=== PATIENT | male | born 1985 | race Two or more races ===

== ENCOUNTER 2017-05-13 16:14 | Emergency (ER) | payer SELFPAY ==
[~2017-05-13] VITALS: Ht 180.3 cm; Wt 81.6 kg
--- NOTE | 2017-05-13 16:43 | NUR ---
PT IS IN ROOM #2A. DR PEREZ EVALUATED THE PT.
[2017-05-13] MEDS: HYDROCODONE/APAP 5-325MG TABLET PO ONE (18:18)
[2017-05-13] MEDS: TDAP DIPH,PERTUSS,TET VAC/PF 0.5 ML DISP.SYRIN IM ONE (18:18)
[2017-05-13] MEDS ORDERED: TDAP DIPH,PERTUSS,TET VAC/PF 0.5 ML DISP.SYRIN IM ONE (18:24)
[2017-05-13] MEDS ORDERED: HYDROCODONE/APAP 5-325MG TABLET ONE (18:25)
--- NOTE | 2017-05-13 19:40 | NUR ---
REPORT RECEIVED FROM DAYSHIFT NURSE, PT FOUND RESTING IN BED, ALERT, ORIENTED X 4, NO RESP DISTRESS NOTED OR REPORTED UPON ASSESSMENT...
[2017-05-13] MEDS: HYDROCODONE/APAP 10-325 MG TABLET PO ONE (21:01)
--- NOTE | 2017-05-13 21:02 | NUR ---
Patient discharged to home in stable conditon. Written and verbal after care instructions given. Patient verbalizes understanding of instructions. pt walked out of ER unassisted with belongings and father and uncle at side...
[2017-05-13 21:06] VITALS: BP 121/86
--- NOTE | 2017-05-13 21:07 | NUR ---
no cd with image provided as per project architect cd copier is non functional, advised pt to check with medical records tomorrow...
[2017-05-13] MEDS ORDERED: HYDROCODONE/APAP 10-325 MG TABLET ONE (21:12)
== END 2017-05-13 21:09 | disposition home or self-care (01) ==
LOC: ER 16:14
DX: S62.397A Other fracture of fifth metacarpal bone, left hand, initial encounter for closed fracture (principal); V89.2XXA Person injured in unspecified motor-vehicle accident, traffic, initial encounter; Y93.89 Activity, other specified; Y92.89 Other specified places as the place of occurrence of the external cause; Y99.8 Other external cause status; Z95.0 Presence of cardiac pacemaker
CPT/HCPCS: 73120; 73200; 90715; A4663